=== PATIENT | female | born 1960 | race Caucasian/White ===

== ENCOUNTER 2020-09-25 21:57 | Emergency (ER) | payer OTHER ==
[~2020-09-25 21:57] MED LIST: CERTAGEN1 EACH PO; CLINDAMYCIN PHO30 ML TOP; K-DUR20 MEQ PO; LASIX20 MG PO; MOBIC15 MG PO; NYSTATIN1 EAC1 TOP; OMEPRAZOLE40 MG PO; PERCOCET 5/3251 TAB PO; PROVENTIL HFA6.7 GM INH; SYNTHROID100 MCG PO; XARELTO10 MG PO; ZESTRIL5 MG PO; ZOVIRAX200 MG PO
[2020-09-25] MEDS ORDERED: BACTROBAN NASAL1 GM TOP (23:31)
[2020-09-25] MEDS ORDERED: NORCO 5-325 TA1 EACH PO (23:31)
[2020-09-25] MEDS ORDERED: MEDROL 4MG DOSEP4 MG PO (23:31)
== END 2020-09-25 23:50 | disposition home or self-care (01) ==
LOC: FER 21:57
DX: T63.441A Toxic effect of venom of bees, accidental (unintentional), initial encounter (principal); I10 Essential (primary) hypertension
CPT/HCPCS: 99282